=== PATIENT | female | born 1975 | race Caucasian/White ===

== ENCOUNTER 2019-06-09 01:41 | Outpatient (CLI) | payer MEDICAID, SELFPAY ==
--- NOTE | 2019-06-09 07:59 | DI.US_ITS ---
EXAM: US PELVIS TRANSVAGINAL CLINICAL HISTORY: ATTEMPTED IUD INSERTION X 2,EVALUATE FOR STRUCTURAL TECHNIQUE: Ultrasound performed using standard protocol. COMPARISON: ABDOMEN LIMITED/FOLLOW UP US from 01/22/2017 FINDINGS: Pelvic ultrasound was performed transabdominally and transvaginally. Please see the accompanying reshma a sheet for measurements of the pelvic structures. Uterus is unremarkable in appearance with a norm al appearing endometrial stripe at 10 millimeters. The ovaries have a normal follicular appearance. No free fluid identified in the cul-de-sac. Limited scanning of the kidneys is unremarkable. IMPRESSION: Negative pelvic ultrasound.
== END 2019-06-09 02:01 ==
PROVIDERS: PCP Nurse Practitioner Family; Visit Provider Nurse Practitioner Women's Health
DX: N94.89 Other specified conditions associated with female genital organs and menstrual cycle (principal)
CPT/HCPCS: 76830; 76856

== ENCOUNTER 2020-02-02 12:47 | Emergency (ER) | payer MEDICAID, SELFPAY ==
[2020-02-02 12:56] VITALS: BP 137/82; PULSE 117; RESP 19; TEMP 36.7; O2SAT 100
--- NOTE | 2020-02-02 13:10 | W.ED.GENAD ---
Discharge Plan Disposition Patient Disposition: HOME Condition: Improving Discharge Details Chief Complaint: Orthopedic Clinical Impression: Acute pain of right shoulder Primary Care Provider: Sandra Staton ED Provider: Carroll Tanner Home Meds and New Rx's Prescriptions: New hydrocodone-acetaminophen 5-325 mg tablet 1 tab PO Q8H PRN (Reason: pain) Qty: 7 RF: 0 Continued etonogestrel-ethinyl estradiol [NuvaRing] 0.12-0.015 mg/24 hr ring 1 vag ring VG Q4W Qty: 3 RF: 8 dextroamphetamine-amphetamine [Adderall XR] 30 mg capsule,extended release 24hr 30 mg PO DAILY MDD 30mg Qty: 30 RF: 0 dextroamphetamine-amphetamine [Adderall] 10 mg tablet 10 mg PO DAILY MDD 10mg Qty: 30 RF: 0 Discharge Instructions Instructions: Shoulder Pain (ED) Additional Instructions: Please follow-up in clinic tomorrow. As we discussed, you have deferred evaluation with x-ray today. Return at any time for reconsideration. Return sooner if you have increasing pain, develop a rash, fever, cough, difficulty breathing or chest pain. Please use ice and ibuprofen to reduce pain. Sling as needed for comfort. May use the prescribed hydrocodone as needed for severe/breakthrough pain. Medical Decision Making 45-year-old female presents with atraumatic right shoulder pain over days time. She says it feels like previous spasms that she had a primary was occurring along the shoulder blade posteriorly. There is areas of reproducible pain and muscle spasm present on exam. Patient is oxygenating normally and her lung sounds are clear. Referred for x-ray of the right shoulder, but patient said she decided that she wished to defer this. We discussed that the pain is reproducible without diagnostics evaluation will be somewhat limiting. I have agreed to offer her increase analgesia and a sling for comfort at home. She states that she does have a follow-up arranged tomorrow and will return if pain is not improving or for any other concerns. HPI General Mode of arrival: ambulatory. Date/Time Provider Initiated Documentation: 02/02/20 12:48. Limitations to Documentation: no limitations. Information obtained by: patient. History of Present Illness 45 year old F presents to the emergency department with the chief complaint of Right shoulder pain, denies fall or injury,, Quality is described as dull and constant, and is localized to the right and upper extremity. Patient reports radiation to back. Patient started experiencing this day(s) and it has been intermittent. No relieving factors improve symptom(s), No exacerbating factors reported . Patient notes denies fever/chills, syncope and weakness. Patient did receive the following treatments prior to arrival, NSAID Related Data Home Medications Medication Instructions Recorded Confirmed etonogestrel 0.12 mg-ethinyl 1 vag ring VG Q4W #3 each 09/04/19 02/02/20 estradiol 0.015 mg/24 hr vaginal ring Adderall 10 mg tablet 10 mg PO DAILY #30 tab NS MDD 10mg 01/19/20 02/02/20 Adderall XR 30 mg capsule,extended 30 mg PO DAILY #30 cap NS MDD 30mg 01/19/20 02/02/20 release hydrocodone-acetaminophen 1 tab PO Q8H PRN #7 tab 02/02/20 Previous Rx's Medication Instructions Recorded etonogestrel 0.12 mg-ethinyl 1 vag ring VG Q4W #3 each 09/04/19 estradiol 0.015 mg/24 hr vaginal ring Adderall 10 mg tablet 10 mg PO DAILY #30 tab NS MDD 10mg 01/19/20 Adderall XR 30 mg capsule,extended 30 mg PO DAILY #30 cap NS MDD 30mg 01/19/20 release hydrocodone-acetaminophen 1 tab PO Q8H PRN #7 tab 02/02/20 Allergies Allergy/AdvReac Type Severity Reaction Status Date / Time Ambien - weird dreams AdvReac Intermediate weird Uncoded 12/26/18 13:49 dreams General Stated Complaint: Orthopedic RANDEE: 4 Review of Systems Narrative: 6 systems reviewed and otherwise negative [facility] Medical History Alcohol abuse (Resolved) Attention deficit hyperactivity disorder (ADHD) (Chronic) Electronic cigarette use (Chronic) Substance abuse (Resolved) Cocaine, LSD Surgical History (Updated 12/21/19 @ 11:34 by Sandra Staton NP) S/P carpal tunnel release (Acute) Bilateral Family History Father Essential hypertension Alcohol abuse Hyperlipidemia Mother Alcohol abuse Substance abuse Daughter No problems noted. 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 Pleasant, well groomed, interactive. HEAD: Normocephalic, atraumatic ENT: Mucous membranes moist, External ear exam unremarkable EYES: PERRL, EOMI NECK: Full ROM, no BOZENA, no menigismus CHEST/RESP: Nontender, clear to auscultation bilateral, no wheeze/rhonchi/rales CARDIOVASCULAR: RRR, no murmur, rub sergio. 2+ Rad pulse bilateral EXT: Full ROM, no edema, no rash. Tender along the right medial scapula border with muscle spasm and knots present. Motor is graded 5 out of 5 and sensation is intact throughout Neuro: Grossly normal neurologic exam, conversant, interactive. Psych: Speech fluent, thoughts congruent, affect normal Course Vital Signs Vital signs: Vital Signs Temperature 36.7 C 02/02/20 12:56 Pulse 117 H 02/02/20 12:56 Respiratory Rate 19 02/02/20 12:56 Blood Pressure 137/82 02/02/20 12:56 Pulse Oximetry 100 02/02/20 12:56 Temperature 36.7 C 02/02/20 12:56 Temperature Source Temporal Artery Scan 02/02/20 12:56 Pulse 117 H 02/02/20 12:56 Respiratory Rate 19 02/02/20 12:56 Respiratory Effort 02/02/20 13:00 Blood Pressure 137/82 02/02/20 12:56 Blood Pressure Position Supine 02/02/20 12:56 Pulse Oximetry 100 02/02/20 12:56 Oxygen Delivery Method Room Air 02/02/20 12:56 Oxygen Flow Rate 0 02/02/20 12:56 Pain Level 9 02/02/20 12:56
== END 2020-02-02 13:39 | disposition home or self-care (01) ==
PROVIDERS: Emergency Provider Emergency Medicine; PCP Nurse Practitioner Family
DX: M25.511 Pain in right shoulder (principal)
CPT/HCPCS: 99283; L3650

== ENCOUNTER 2020-03-28 01:11 | Outpatient (CLI) | payer MEDICAID, SELFPAY ==
--- NOTE | 2020-03-28 07:45 | DI.RAD_ITS ---
EXAM: XR LUMBAR SPINE COMPLETE CLINICAL HISTORY: Low back pain x 1.3yrs,M54.5 TECHNIQUE: COMPARISON: No exams were available for comparison FINDINGS: Five views were obtained. There are mild degenerative changes of the SI joints. The intervertebral disc spaces appear fairly well maintained. There is an apparent bilateral L5 spondylolysis with spon dylolisthesis of L5 on S1 estimated at 15 percent of the vertebral width. No other significant bony abnormality seen apart from minimal hypertrophic facet changes of the lower lumbar region. IMPRESSION: Bilateral L5 spondylolysis with mild anterior spondylolisthesis of L5 on S1.
== END 2020-03-28 01:31 ==
PROVIDERS: PCP Nurse Practitioner Family; Visit Provider Nurse Practitioner Family
DX: M54.5 Low back pain; M43.06 Spondylolysis, lumbar region; M43.17 Spondylolisthesis, lumbosacral region
CPT/HCPCS: 72110

== ENCOUNTER 2020-04-06 01:39 | Outpatient (CLI) | payer MEDICAID, SELFPAY ==
--- NOTE | 2020-04-06 06:46 | DI.MRI_ITS ---
EXAM: MR LUMBAR SPINE WO CLINICAL HISTORY: Back pain x 1yr, assess for disc herniation,RADICULOPATHY,M54.16. TECHNIQUE: Multiplanar multisequence MRI was performed. COMPARISON: CR XR LUMBAR SPINE COMPLETE from 03/28/2020 FINDINGS: MR examination lumbosacral spine was performed according to the usual protocol. No significant bony signal abnormality seen. There is a bilateral L5 spondylolysis with associated spondylolisthesis est imated at 10 percent of the vertebral width of L5 on S1. The conus medullaris appears intact. No disc herniation identified at the levels examined. There is no bony central canal spinal stenosis. There is mild bilateral neural foraminal narrowing at L5-S1 secondary to the spondylolisthesis at this level. IMPRESSION: Bilateral L5 spondylolysis with associated anterior spondylolisthesis of L5 on S1 estimated at 10 per cent of vertebral width. There is mild associated bilateral neural foraminal narrowing at this level secondary to the spondylo listhesis. DATA REPOSITORY:
== END 2020-04-06 01:59 ==
PROVIDERS: PCP Nurse Practitioner Family; Visit Provider Nurse Practitioner Family
DX: M43.06 Spondylolysis, lumbar region (principal); M43.17 Spondylolisthesis, lumbosacral region; M54.16 Radiculopathy, lumbar region
CPT/HCPCS: 72148

== ENCOUNTER 2020-10-12 02:30 | Outpatient (CLI) | payer MEDICAID, SELFPAY ==
[2020-10-13 13:06] LABS: COVID-19 RT-PCR UVMMC Result Negative (Negative)
== END 2020-10-12 02:31 | disposition home or self-care (01) ==
LOC: LBO 02:31
PROVIDERS: PCP Nurse Practitioner Family; Visit Provider Nurse Practitioner Family
DX: Z20.822 Contact with and (suspected) exposure to COVID-19 (principal)
CPT/HCPCS: U0003

== ENCOUNTER → 2021-12-27 00:41 | Outpatient (CLI) | payer MEDICAID, SELFPAY | PROVIDERS: PCP Nurse Practitioner Family; Visit Provider Nurse Practitioner Family ==

== ENCOUNTER 2022-01-13 19:37 | Emergency (ER) | payer MEDICAID, SELFPAY ==
[2022-01-13 19:42] VITALS: BP 143/94; PULSE 96; RESP 18; TEMP 36.3; O2SAT 99
--- NOTE | 2022-01-13 20:22 | W.ED.GENAD ---
Discharge Plan Disposition Patient Disposition: HOME Condition: Good Discharge Details Clinical Impression: External hordeolum, Rash Primary Care Provider: Sandra Staton ED Provider: Eduardo Ludwig Home Meds and New Rx's Prescriptions: New cephalexin 500 mg capsule 500 mg PO QID 7 Days Qty: 28 0RF hydroxyzine HCl 25 mg tablet 25 mg PO TID Qty: 30 0RF Continued metronidazole 500 mg tablet 500 mg PO BID Qty: 14 0RF Rx Instructions: Take 1 tablet twice a day for 7 days dextroamphetamine-amphetamine [Adderall] 10 mg tablet 10 mg PO DAILY MDD 10mg Qty: 28 0RF Rx Instructions: Take 1 tablet in the afternoon, latest by 3p dextroamphetamine-amphetamine [Adderall XR] 30 mg capsule,extended release 24hr 30 mg PO DAILY MDD 30mg Qty: 28 0RF Rx Instructions: Take 1 capsule daily in AM ibuprofen 800 mg tablet 800 mg PO TID PRN (Reason: pain) Qty: 120 0RF lidocaine 4 % adhesive patch,medicated 1 patch TP DAILY PRN (Reason: pain) Qty: 30 4RF Rx Instructions: may leave on for up to 12 hrs Discharge Instructions Instructions: Cephalexin (By mouth), Stye (ED) Additional Instructions: Please take the antibiotic as directed. They have been sent to your pharmacy on file. Please take the itching medicine hydroxyzine as well to help with the itching from the bug bites. Please gently massage your eye 2-3 times per day with warm soapy water, I would recommend [employer] tear free baby shampoo. If the swelling worsens, or spreads or you develop pain in your eye with any movement, please return immediately for reassessment. You may require drainage with a needle or blade if this occurs. 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 If you notice any worsening of your symptoms, or any new symptoms such as vomiting, diarrhea, fever, chills, shortness of breath, chest pain, numbness, weakness, or fainting , please return immediately to the emergency department for reevaluation. Please follow up with your primary care provider as soon as possible for reassessment and reevaluation. As always, it was a pleasure participating in your medical care today. Referrals: [facility] [Outside] Sandra Staton NP [Primary Care Provider] - Medical Decision Making This is a pleasant 46-year-old female who presents today for evaluation of a stye. Patient states that for the last few days she has had a small stye in her right lower lid. She has tried to squeeze it but was not able to get anything out. She was concerned about this and came to the ER for further assessment. Additionally the patient states that she was exposed to fleas about a week or so ago, and has had some persistent itching at the sites where she was bitten. She is requesting something for this. She denies any vision changes, pain with movement of the eye, pain with palpation, fever chills or other complaints. No other modifying factors. She denies any trauma. She denies any drainage from the eye. Physical exam demonstrates evidence of a mild hordeolum externum. No evidence of pre or post septal cellulitis of significance. Area does not appear to be consistent with a plugged lacrimal gland however it is in close proximity to the lacrimal gland which makes the differentiation slightly challenging. At this time with no clear indication for I&D at this time, we will focus on oral antibiotics, continued gentle washing of the area with warm soapy water, and close follow-up with optometry/Dr. Ann. Additionally the patient does have a few small lesions on her arms that are consistent with a flea bite. Will give Atarax for the itching. No indication for permethrin ointment as there is no evidence of intertriginous involvement, or symptoms of scabies. No superficial cellulitis otherwise. Discussed red flags which to return. I have extensively reviewed the treatment plan and discharge instructions with the patient. I have addressed all patient concerns at this time. The patient was made aware of what symptoms to monitor for that would warrant a return to the emergency department. Discussed the plan with the patient, they demonstrate verbal understanding and agreement with our assessment and plan at this time. The documentation in this chart was dictated using [employer] dictation software. Please excuse any dictation errors. HPI General Date/Time Provider Initiated Documentation: 01/13/22 19:38. HPI Narrative: This is a pleasant 46-year-old female who presents today for evaluation of a stye. Patient states that for the last few days she has had a small stye in her right lower lid. She has tried to squeeze it but was not able to get anything out. She was concerned about this and came to the ER for further assessment. Additionally the patient states that she was exposed to fleas about a week or so ago, and has had some persistent itching at the sites where she was bitten. She is requesting something for this. She denies any vision changes, pain with movement of the eye, pain with palpation, fever chills or other complaints. No other modifying factors. She denies any trauma. She denies any drainage from the eye. Related Data Home Medications Medication Instructions Recorded Confirmed ibuprofen 800 mg tablet 800 mg PO TID PRN pain #120 tabs 10/06/21 11/30/21 lidocaine 4 % topical patch 1 patch topical DAILY PRN pain #30 10/06/21 11/30/21 ea Adderall 10 mg tablet 10 mg PO DAILY #28 tabs 11/30/21 11/30/21 (dextroamphetamine-amphetamine) Adderall XR 30 mg capsule,extended 30 mg PO DAILY #28 caps 11/30/21 11/30/21 release (dextroamphetamine-amphetamine) metronidazole 500 mg tablet 500 mg PO BID #14 tabs 11/30/21 11/30/21 cephalexin 500 mg capsule 500 mg PO QID 7 days #28 caps 01/13/22 hydroxyzine HCl 25 mg tablet 25 mg PO TID #30 tabs 01/13/22 Previous Rx's Medication Instructions Recorded ibuprofen 800 mg tablet 800 mg PO TID PRN pain #120 tabs 10/06/21 lidocaine 4 % topical patch 1 patch topical DAILY PRN pain #30 10/06/21 ea Adderall 10 mg tablet 10 mg PO DAILY #28 tabs 11/30/21 (dextroamphetamine-amphetamine) Adderall XR 30 mg capsule,extended 30 mg PO DAILY #28 caps 11/30/21 release (dextroamphetamine-amphetamine) metronidazole 500 mg tablet 500 mg PO BID #14 tabs 11/30/21 cephalexin 500 mg capsule 500 mg PO QID 7 days #28 caps 01/13/22 hydroxyzine HCl 25 mg tablet 25 mg PO TID #30 tabs 01/13/22 Allergies Allergy/AdvReac Type Severity Reaction Status Date / Time Ambien - weird dreams AdvReac Intermediate weird Uncoded 01/13/22 19:47 dreams General Stated Complaint: EyeProblem RANDEE: 4 Review of Systems All systems reviewed & are unremarkable except as noted in HPI and below PFSH All Active Problems External hordeolum (Acute) Rash (Acute) Attention deficit hyperactivity disorder (ADHD) (Chronic) IUD surveillance (Chronic) Mirena IUD inserted 04/14/20 Trigger finger of right thumb (Chronic) Electronic cigarette use (Chronic) Medical History Alcohol abuse Lumbar back pain with radiculopathy affecting lower extremity Lumbar spondylolysis with spondylolisthesis on MRI 03/2020. No disc herniation Surgical History S/P carpal tunnel release Bilateral Family History Father Essential hypertension Alcohol abuse Hyperlipidemia Mother Alcohol abuse Substance abuse Daughter No problems noted. 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 Patient does demonstrate evidence of what appears to be a hordeolum externum on the left eye on the lower lid. However it is in close proximity to the inferior lacrimal duct. Gentle palpation of the area does not exude any purulence or discharge. There is no other signs on the patient's eye or other lacrimal areas or significant swelling to suggest blockage of the lacrimal duct itself. No tenderness on palpation of the eye otherwise. Small area of swelling/stye is minimally firm. No major fluctuance that I can appreciate. No head that can easily be deroofed. No conjunctival injection. 3.ENT: Atraumatic external nose and ears. Moist MM. Neck: Symmetric, trachea midline, No thyromegaly. 4.CVS: +S1/S2, No murmurs or gallops. Peripheral pulses 2+ and equal in all extremities. Brisk capillary refill in all extremities. 5.RESP: Unlabored respiratory effort. Clear to auscultation bilaterally. No wheezes rales or rhonchi 6.GI: Soft, Nontender/Nondistended, No hepatosplenomegaly. No guarding or rebound. 7.MSK: Normocephalic/Atraumatic, Extremities w/o deformity or ttp No cyanosis or clubbing, Normal movement of all extremities 8.Skin: Warm, Dry. No rashes or lesions. 9.Neuro: vice president of talent acquisition II-XII grossly intact. Sensation grossly intact, no focal neurologic deficits. 10.Psych: (AAO) x3. Appropriate mood and affect Course Vital Signs Vital signs: Vital Signs Temperature 36.3 C L 01/13/22 19:42 Pulse 96 H 01/13/22 19:42 Respiratory Rate 18 01/13/22 19:42 Blood Pressure 143/94 H 01/13/22 19:42 Pulse Oximetry 99 01/13/22 19:42 Temperature 36.3 C L 01/13/22 19:42 Temperature Source Skin 01/13/22 19:42 Pulse 96 H 01/13/22 19:42 Respiratory Rate 18 01/13/22 19:42 Respiratory Effort 01/13/22 19:45 Blood Pressure 143/94 H 01/13/22 19:42 Blood Pressure Position Sitting 01/13/22 19:42 Pulse Oximetry 99 01/13/22 19:42 Oxygen Delivery Method Room Air 01/13/22 19:42 Oxygen Flow Rate 0 01/13/22 19:42 Pain Level 3 01/13/22 19:42
[2022-01-13] MEDS: Cephalexin 500 MG CAP, 4 CAPS/BTL PO (20:36)
[2022-01-13] MEDS: hydrOXYzine HCL 25 MG TAB PO (20:36)
--- NOTE | 2022-01-13 20:55 | NUR.NOTE ---
Referral faxed to [facility] per Dr. Ludwig. The patient needs re-assessment for a stye and she needs glasses. Put the referral in the nursing care attendant's box for follow-up.
== END 2022-01-13 20:37 | disposition home or self-care (01) ==
PROVIDERS: Emergency Provider Student in an Organized Health Care Education/Training Program; PCP Nurse Practitioner Family
DX: H00.015 Hordeolum externum left lower eyelid (principal)
CPT/HCPCS: 99283

== ENCOUNTER 2022-08-17 13:39 | Emergency (ER) | payer MEDICAID, SELFPAY ==
[2022-08-17 14:04] VITALS: BP 148/87; PULSE 106; RESP 15; TEMP 36.8; O2SAT 99
== END 2022-08-17 14:11 | disposition left against medical advice (07) ==
LOC: ER 13:48
PROVIDERS: PCP Nurse Practitioner Family
DX: Z53.21 Procedure and treatment not carried out due to patient leaving prior to being seen by health care provider (principal)
CPT/HCPCS: 87637

== ENCOUNTER 2024-05-23 13:52 | Emergency (ER) | payer MEDICAID, SELFPAY ==
[2024-05-23 13:57] VITALS: BP 134/75; PULSE 110; RESP 18; TEMP 36.5; O2SAT 98
--- NOTE | 2024-05-23 14:00 | DI.RAD_ITS ---
Exam(s) XR HAND LT COMPLETE EXAM: XR HAND LT COMPLETE CLINICAL HISTORY: L 4th finger pain x 1 week. TECHNIQUE: 2D digital imaging was performed of the left hand. Three views were obtained. AP, later al and oblique views were obtained. COMPARISON: No exams were available for comparison FINDINGS: BONES: No acute fracture is present. No bony destructive lesion is seen. JOINTS: No dislocation present. There are mild degenerative changes seen in the hand particularly at the interphalangeal joints, especially the DIP joints of the 2nd and 3rd fingers. SOFT TISSUE: Normal. IMPRESSION: Mild degenerative changes seen in the fingers. DATA REPOSITORY: RADIATION DOSE DELIVERED:
--- NOTE | 2024-05-23 14:17 | W.ED.GENAD ---
Discharge Plan Disposition Patient Disposition: Home Discharge Details Clinical Impression: Finger sprain Primary Care Provider: Sandra Staton ED Provider: Juli Perdue Home Meds and New Rx's Prescriptions: No Action triamcinolone acetonide 0.1 % cream 1 applic topical BID Qty: 15 0RF lidocaine 4 % adhesive patch,medicated 1 patch TP DAILY PRN (Reason: pain) Qty: 30 4RF Rx Instructions: may leave on for up to 12 hrs ibuprofen 800 mg tablet 800 mg PO TID PRN (Reason: pain) Qty: 120 0RF dextroamphetamine-amphetamine [Adderall XR] 30 mg capsule,extended release 24hr 30 mg PO DAILY MDD 30mg Qty: 28 0RF Rx Instructions: Take 1 capsule daily in AM dextroamphetamine-amphetamine 30 mg tablet 30 mg PO DAILY MDD 30mg Qty: 28 0RF Discharge Instructions Instructions: Finger Sprain Exercises Additional Instructions: Please follow-up with your primary care provider in 1 week if you are not feeling significantly better; a referral to OT may be helpful I encourage you to use the finger exercises and the pamphlet provided. Will use rufina taping to help with comfort. Apply ice frequently, for 15 to 20 minutes at a time every hour if possible. You may continue using ibuprofen. Referrals: Sandra Staton, KARI [Primary Care Provider] - [facility] General Date/Time Provider Initiated Documentation: 05/23/24 13:56. HPI Narrative: Vanda is a 49 year old female who presents to the emergency dept for evaluation of L ring finger pain x 1 week. She reports her finger got bent back while carrying some heavy bags, has been increasing in pain since incident. Pain is elicited with extension and flexion. Finger is swollen. No distal numbness/tingling, color change, or weakness. Has been taking ibuprofen and using ice for comfort. She is right handed. Denies signficant PMH, does admit to arthritis in her hands. Physical exam remarkable for mild swelling to proximal phalynx. Full extension and flexion, though uncomfortable. Brisk cap refill. No point tenderness. Mild tenderness with palpation of distal metacarpal. D/dx includes but is not limited to: fracture, sprain, soft tissue injury. No red flags concerning for tendon rupture or neurovascular compromise. I independently interpreted the following test:L hand xray. No obvious fracture of dislocation noted. While in the ED, Vanda received ibuprofen and ice for discomfort. Probable sprain. Reviewed discharge instructions, including use of rufina tape, NSAIDS, rest, and ice. Related Data Home Medications ?Medication ?Instructions ?Recorded ?Confirmed triamcinolone acetonide 0.1 % 1 applic topical BID #15 grams 02/25/23 05/23/24 topical cream lidocaine 4 % topical patch 1 patch topical DAILY PRN pain #30 08/28/23 05/23/24 ea ibuprofen 800 mg tablet 800 mg PO TID PRN pain #120 tabs 09/18/23 05/23/24 Adderall XR 30 mg capsule,extended 30 mg PO DAILY #28 caps 03/09/24 05/23/24 release (dextroamphetamine-amphetamine) dextroamphetamine-amphetamine 30 30 mg PO DAILY #28 tabs 03/09/24 05/23/24 mg tablet Previous Rx's ?Medication ?Instructions ?Recorded triamcinolone acetonide 0.1 % 1 applic topical BID #15 grams 02/25/23 topical cream lidocaine 4 % topical patch 1 patch topical DAILY PRN pain #30 08/28/23 ea ibuprofen 800 mg tablet 800 mg PO TID PRN pain #120 tabs 09/18/23 Adderall XR 30 mg capsule,extended 30 mg PO DAILY #28 caps 03/09/24 release (dextroamphetamine-amphetamine) dextroamphetamine-amphetamine 30 30 mg PO DAILY #28 tabs 03/09/24 mg tablet Allergies Allergy/AdvReac Type Severity Reaction Status Date / Time Ambien - weird dreams AdvReac Intermediate weird Uncoded 05/23/24 13:59 dreams General Stated Complaint: Orthopedic RANDEE: 4 Review of Systems Narrative: see HPI Exam Const General: cooperative, healthy appearing, comfortable, no acute distress, well developed and well groomed Nutritional Appearance: average body habitus Orientation: alert and oriented x3 Resp Effort & Inspection: normal respiratory effort and able to speak in complete sentences Extrem Right upper extremity: normal to inspection and full ROM Left upper extremity: full ROM, normal capillary refill, wrist Details: normal to inspection and hand Details: normal capillary refill, neuromotor exam normal, neurosensory exam normal, tendon exam normal, tenderness Location: of the 4th digit Location: at the proximal phalanx, normal ROM of fingers and swelling Location: of the 4th digit Location: at the proximal phalanx; no unusual warmth, no abrasions, no lacerations, no ecchymosis, no crepitus, no foreign bodies and no puncture wound Course Vital Signs Vital signs: Vital Signs Temperature 36.5 C 05/23/24 13:57 Pulse 110 H 05/23/24 13:57 Respiratory Rate 18 05/23/24 13:57 Blood Pressure 134/75 05/23/24 13:57 Pulse Oximetry 98 05/23/24 13:57 Temperature 36.5 C 05/23/24 13:57 Temperature Source Oral 05/23/24 13:57 Pulse 110 H 05/23/24 13:57 Respiratory Rate 18 05/23/24 13:57 Respiratory Effort Normal, Non-Labored 05/23/24 14:00 Blood Pressure 134/75 05/23/24 13:57 Blood Pressure Position Sitting 05/23/24 13:57 Pulse Oximetry 98 05/23/24 13:57 Oxygen Delivery Method Room Air 05/23/24 13:57 Oxygen Flow Rate 0 05/23/24 13:57 Medical Decision Making Quality:SDOH Health Related Social Needs: No Data to Display PFSH All Active Problems Finger sprain (Acute) Social anxiety disorder (Acute) Attention deficit hyperactivity disorder (ADHD) (Chronic) IUD surveillance (Chronic) Mirena IUD inserted 04/14/20 Trigger finger of right thumb (Chronic) Electronic cigarette use (Chronic) Medical History Alcohol abuse COVID-19 virus infection Lumbar back pain with radiculopathy affecting lower extremity Lumbar spondylolysis with spondylolisthesis on MRI 03/2020. No disc herniation Surgical History S/P carpal tunnel release Bilateral Family History Father Essential hypertension Alcohol abuse Hyperlipidemia Mother Alcohol abuse Substance abuse Daughter No problems noted. 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
[2024-05-23] MEDS: Ibuprofen 800 MG TAB PO (14:34)
[2024-05-23 15:02] VITALS: BP 130/82; PULSE 86; RESP 18; O2SAT 98
--- NOTE | 2024-05-23 15:40 | DI.VRAD_ITS ---
PROCEDURE INFORMATION: Exam: XR Left Hand Exam date and time: 05/23/2024 2:37 PM Age: 49 years old Clinical indication: Pain; Finger(s) and hand; Left TECHNIQUE: Imaging protocol: Radiologic exam of the left hand. Views: 3 or more views. COMPARISON: No relevant prior studies available. FINDINGS: Bones/joints: No acute fracture or dislocation identified. The distal radius and ulna are intact. The carpal bones show normal alignment. There are no subluxations of the metacarpophalangeal joints. There is mild degenerative change of the interphalangeal joints consisting of mild joint space narrowing and minimal spur formation. Changes are greatest in the distal interphalangeal joint of the 3rd finger. There is no erosive change or bony destruction. Soft tissues: No soft tissue gas or foreign bodies. IMPRESSION: 1. No acute bony change identified. 2. Mild osteoarthritis of the interphalangeal joints without erosive change or bony destruction. Dictated and Authenticated by: Marc Mendez MD. Ordering:TOM Bustos MD
== END 2024-05-23 15:04 | disposition home or self-care (01) ==
PROVIDERS: Emergency Provider Nurse Practitioner Family; PCP Nurse Practitioner Family
DX: S63.615A Unspecified sprain of left ring finger, initial encounter (principal); X50.1XXA Overexertion from prolonged static or awkward postures, initial encounter
CPT/HCPCS: 99283; 73130

== ENCOUNTER 2025-03-02 13:57 | Emergency (ER) | payer MEDICAID, SELFPAY ==
[2025-03-02] MEDS: EPINEPHrine 0.3 MG KIT (14:04)
[2025-03-02 14:18] VITALS: BP 57/40; RESP 120; O2SAT 99
[2025-03-02] MEDS: methylPREDNISolone SUCC 125 MG VIAL IVP (14:21)
[2025-03-02] MEDS: Normal Saline 1,000 ML 1000 ML IV (14:21)
[2025-03-02] MEDS: Famotidine 20 MG/2 ML VIAL IVP (14:21)
--- NOTE | 2025-03-02 14:21 | ED.GENADUL_ITS ---
Discharge Plan Disposition Patient Disposition: Home Condition: Stable Discharge Details Clinical Impression: Anaphylactic reaction Primary Care Provider: Sandra Staton ED Provider: Allison Fuentes Home Meds and New Rx's Prescriptions: New epinephrine [EpiPen 2-Kian] 0.3 mg/0.3 mL auto-injector 0.3 mg IM Q5-15M PRNQty: 2 1RF Rx Instructions: do not exceed 3 doses per episode prednisone 20 mg tablet 60 mg PO DAILY 5 Days Qty: 15 0RF No Action triamcinolone acetonide 0.1 % cream 1 applic topical BID Qty: 15 0RF lidocaine 4 % adhesive patch,medicated 1 patch TP DAILY PRN (Reason: pain) Qty: 30 4RF Rx Instructions: may leave on for up to 12 hrs ibuprofen 800 mg tablet 800 mg PO TID PRN (Reason: pain) Qty: 120 0RF dextroamphetamine-amphetamine [Adderall XR] 30 mg capsule,extended release 24hr 30 mg PO DAILY MDD 30mg Qty: 28 0RF Rx Instructions: Take 1 capsule daily in AM dextroamphetamine-amphetamine 30 mg tablet 30 mg PO DAILY MDD 30mg Qty: 28 0RF Discharge Instructions Instructions: How to use an epinephrine autoinjector, Anaphylaxis - Discharge instructions Additional Instructions: You developed anaphylactic reaction to the insect sting from earlier today. You needed epinephrine and IV steroids in the emergency department with improvement of symptoms. I am prescribing an epinephrine pen for you to use should this happen again. Please use this as prescribed. Please follow-up with your [facility] doctor as well and in the meantime if you develop any new or worsening symptoms please return to the emergency department immediately for reevaluation. Discharge Data Discharge Date/Time-TO BE ENTERED AT DEPARTURE: 03/02/25 17:02 HPI General Date/Time Provider Initiated Documentation: 03/02/25 14:02 . HPI Narrative: The patient is a 50-year-old female with history of anxiety who comes to the emergency department for concern for an allergic reaction. The patient reports that she was working on the garden and heard an insect buzzing and felt a stab on her scalp. Reports soon after she started to feel short of breath, itchy and swollen. Reports that she has been stung on the abdomen years prior and developed a large rash on her abdomen but never had a reaction this intense. Reports she was at her baseline health prior. Reports that she does not have an EpiPen at home and had not taken any medication prior to emergency room arrival. Denies any nausea or vomiting with this. Reports that she did have a hard time swallowing. Reports that there was nothing new or different from her routine prior to symptom onset. Related Data Home Medications ?Medication ?Instructions ?Recorded ?Confirmed triamcinolone acetonide 0.1 % 1 applic topical BID #15 grams 02/25/23 05/23/24 topical cream ibuprofen 800 mg tablet 800 mg PO TID PRN pain #120 tabs 05/27/24 lidocaine 4 % topical patch 1 patch topical DAILY PRN pain #30 05/27/24 ea Adderall XR 30 mg capsule,extended 30 mg PO DAILY #28 caps 02/02/25 release (dextroamphetamine-amphetamine) dextroamphetamine-amphetamine 30 30 mg PO DAILY #28 ta bs 02/02/25 mg tablet epinephrine 0.3 mg/0.3 mL 0.3 mg (0.3 mL) IM Q5-15M AL N #2 ea 03/02/25 injection, auto-injector (EpiPen 2-Kian) prednisone 20 mg tablet 60 mg (3 x 20 mg) PO DAILY 5 days 03/02/25 #15 tabs Previous Rx's ?Medication ?Instructions ?Recorded triamcinolone acetonide 0.1 % 1 applic topical BID #15 grams 02/25/23 topical cream ibuprofen 800 mg tablet 800 mg PO TID PRN pain #120 tabs 05/27/24 lidocaine 4 % topical patch 1 patch topical DAILY PRN pain #30 05/27/24 ea Adderall XR 30 mg capsule,extended 30 mg PO DAILY #28 caps 02/02/25 release (dextroamphetamine-amphetamine) dextroamphetamine-amphetamine 30 30 mg PO DAILY #28 ta bs 02/02/25 mg tablet epinephrine 0.3 mg/0.3 mL 0.3 mg (0.3 mL) IM Q5-15M AL N #2 ea 03/02/25 injection, auto-injector (EpiPen 2-Kian) prednisone 20 mg tablet 60 mg (3 x 20 mg) PO DAILY 5 days 03/02/25 #15 tabs Allergies Allergy/AdvReac Type Severity Reaction Status Date / Time Ambien - weird dreams AdvReac Intermediate weird Uncoded 05/23/24 13:59 dreams General Stated Complaint: Allergic RANDEE: 2 Review of Systems Narrative: Review of systems are negative except as mentioned. Exam Narrative Exam Narrative: General appearance: The patient is alert, in distress. HEENT: Pupils are round, equal and reactive. Patient has eyelid swelling bilaterally. Oral mucosal membranes are moist. No tongue or lip swelling noted. Neck: Supple, non-tender. Respiratory: There are no retractions. Patient has wheezes in upper lung field. Cardiovascular: Patient is tachycardic but regular. Radial pulses are intact and equal. Gastrointestinal: The abdomen is soft and nondistended with normal bowel sounds. Nontender to palpation throughout. Neurological: The patient is alert, awake and oriented x 3. Skin: Patient has maculopapular lesions of her extremities and trunk. No retained insect part is noted on her scalp. Extremities: No lower extremity edema or calf tenderness is noted to palpation bilaterally. Course Vital Signs Vital signs: Vital Signs Respiratory Rate 120 H 03/02/25 14:18 Blood Pressure 57/40 L 03/02/25 14:18 Pulse Oximetry 99 03/02/25 14:18 Respiratory Rate 120 H 03/02/25 14:18 Blood Pressure 57/40 L 03/02/25 14:18 Blood Pressure Position Sitting 03/02/25 14:18 Pulse Oximetry 99 03/02/25 14:18 Oxygen Delivery Method Room Air 03/02/25 14:18 Oxygen Flow Rate 0 03/02/25 14:18 Medical Decision Making I came to evaluate the patient immediately upon arrival. Physical exam is concerning for anaphylaxis. I have ordered epinephrine IM and IV Solu-Medrol, Pepcid and Benadryl. Patient is found to be hypotensive. I have ordered a liter of normal saline also. I do have a low threshold for repeat epinephrine dose. She will need to be closely observed. On reevaluation her blood pressure has improved. The patient reports that she is feeling better also but drowsy after IV medication administration. I will ho ld off on repeat epinephrine just now but we will continue to closely observe. I have reevaluated the patient again. Her blood pressure is back to normal. The swelling in her eyelids have completely resolved. She will be reevaluated again. On reevaluation she feels much improved. At this point it has been almost 3 hours since epinephrine administration and she remains hemodynamically stable without need for further epinephrine dose. Patient is to be discharged shortly. I have sent a prescription for EpiPen to her preferred pharmacy and asked her to use this should the similar event happen in the future and then call 911. She is asked to follow-up with her primary care doctor as well and urged to return to the emergency department with any worsening symptoms or any other concerns. Just prior to discharge the patient has developed urticarial lesions to the extremities and trunk. She continued to not have any facial involvement and continued to overall feel improved and not as itchy. She denies any chest pain, shortness of breath, difficulty swallowing. She reports she is ready to go home therefore she is to be discharged. I did add a prescription for prednisone to her preferred pharmacy and asked her to take this as prescribed and asked her to have low threshold to return to the emergency department should her symptoms start to get worse once more. Patient voiced understanding of this plan and agree. Critical Care Time Critical Care Time Critical Care Time: Yes Total Critical Care Time: 25 Attestation: Total critical care time: 25 minutes Critical concerns: anaphylaxis Critical interventions: I came to evaluate the patient immediately upon arrival. Patient had facial swelling, shortness of breath. She was found to be hypotensive as well. She is given epinephrine and IV steroids immediately. She was started on IV fluids also. She was closely observed and reevaluated multiple times. Total critical care time included the assessment and discussion described in the ED history, physical, and medical decision making. The critical care time provided excludes separately billable procedures. PFSH All Active Problems Anaphylactic reaction (Acute) Social anxiety disorder (Acute) Attention deficit hyperactivity disorder (ADHD) (Chronic) IUD surveillance (Chronic) Mirena IUD inserted 04/14/20 Trigger finger of right thumb (Chronic) Electronic cigarette use (Chronic) Medical History Alcohol abuse COVID-19 virus infection Lumbar back pain with radiculopathy affecting lower extremity Lumbar spondylolysis with spondylolisthesis on MRI 03/2020. No disc herniation Surgical History S/P carpal tunnel release Bilateral Family History Father Essential hypertension Alcohol abuse Hyperlipidemia Mother Alcohol abuse Substance abuse Daughter No problems noted. 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
[2025-03-02] MEDS: diphenhydrAMINE 50 MG/ML VIAL 25 MG IVP (14:22)
== END 2025-03-02 17:02 | disposition home or self-care (01) ==
PROVIDERS: Emergency Provider Emergency Medicine; PCP Nurse Practitioner Family
DX: T63.481A Toxic effect of venom of other arthropod, accidental (unintentional), initial encounter (principal); T78.2XXA Anaphylactic shock, unspecified, initial encounter; F41.9 Anxiety disorder, unspecified; Y93.H2 Activity, gardening and landscaping; F17.290 Nicotine dependence, other tobacco product, uncomplicated
CPT/HCPCS: 96361; 96374; 96375; 99284; 99291; J0165; J1200; J2919

== ENCOUNTER 2025-05-05 19:32 | Emergency (ER) | payer MEDICAID, SELFPAY ==
[2025-05-05 19:21] VITALS: BP 151/70; PULSE 112; RESP 20; TEMP 36.9; O2SAT 99
--- NOTE | 2025-05-05 19:54 | ED.GENADUL_ITS ---
Discharge Plan Disposition Patient Disposition: Home Discharge Details Clinical Impression: Reaction to hymenoptera sting Primary Care Provider: Sandra Staton ED Provider: Miller Keating Home Meds and New Rx's Prescriptions: New epinephrine [EpiPen 2-Kian] 0.3 mg/0.3 mL auto-injector 0.3 mg IM Q5-15M PRNQty: 2 0RF Rx Instructions: do not exceed 3 doses per episode Continued lidocaine 4 % adhesive patch,medicated 1 patch TP DAILY PRN (Reason: pain) Qty: 30 4RF Rx Instructions: may leave on for up to 12 hrs ibuprofen 800 mg tablet 800 mg PO TID PRN (Reason: pain) Qty: 120 0RF dextroamphetamine-amphetamine [Adderall XR] 30 mg capsule,extended release 24hr 30 mg PO DAILY MDD 30mg Qty: 28 0RF Rx Instructions: Take 1 capsule daily in AM epinephrine [EpiPen 2-Kian] 0.3 mg/0.3 mL auto-injector 0.3 mg IM Q5-15M PRNQty: 2 1RF Rx Instructions: do not exceed 3 doses per episode Discharge Instructions Additional Instructions: You are seen in the emergency department for your bee sting. You received steroids. Your EpiPen has been refilled. If you develop shortness of breath chest pain or have any other concerns please return to the emergency department. Otherwise please follow-up with primary care provider as needed. Discharge Data Discharge Date/Time-TO BE ENTERED AT DEPARTURE: 05/05/25 20:38 HPI General Date/Time Provider Initiated Documentation: 05/05/25 19:54 . HPI Narrative: MDM This is an overall quite well-appearing tachycardic but normotensive and not hypoxic 50-year-old female with history of anaphylaxis now status post EpiPen for which patient will be observed in the emergency department following dexamethasone. Patient was concerned about her bee sting that had no obvious signs of anaphylaxis prior to self administration of EpiPen. EMS did not provide EpiPen. She has a very subtle erythematous area to the dorsal aspect of her left foot where she was stung by bee. No pain or proportion to suggest nec rotizing soft tissue infection. No preceding syncope to suggest benefit from ACS. Will observe the patient in the ED. Will refill her prescription for EpiPen. No nausea no vomiting to suggest anaphylaxis. 8:28 PM I reassessed the patient. She felt improved. She requested discharge. We discussed that she should return for symptoms worsened or if she had any other concerns. She was discharged with empiric trial of Bactrim and outpatient management. Tachycardia resolved at the time of discharge. HPI The patient presents for evaluation of a wasp sting. She reports being stung on the top of her foot by a wasp, resulting in small red welts. She is not experiencing any pain at present. She describes her breathing as coming in waves. She administered an EpiPen approximately 30 minutes ago, which was prescribed to her a month ago following her first allergic reaction to a wasp sting. This initial reaction occurred when she was stung on the top of her head by a paper wasp, leading to facial swelling within 10 minutes. She arrived via EMS. Exam General: Well-appearing in no acute distress speaking in complete sentences. Head: Normocephalic, atraumatic. Eye: Extraocular eye movements intact. No conjunctival injection. No scleral icterus. Ear, nose, mouth, throat: Grossly normal inspection. Normal voice, handling secretions normally. No significant posterior oropharynx swelling. Neck: Trachea midline. Cardiovascular: Well-perfused distal extremities. Rapid regular rate Respiratory: Nonlabored respiration. Clear lungs bilaterally. No wheezes. Gastrointestinal: Nondistended abdomen. Musculoskeletal: No edema. Moving all 4 extremities spontaneously. Skin: Normal for age and race, grossly normal temperature and turgor. No acute rash. On the dorsal aspect of the left proximal foot there is an approximately 1 cm diameter mild erythematous area. No fluctuance. Neurologic: Alert and appropriate, no apparent acute deficits. GCS 15. Psychiatric: Mood and manner are appropriate. Grooming and personal hygiene are appropriate. Related Data Home Medications ?Medication ?Instructions ?Recorded ?Confirmed ibuprofen 800 mg tablet 800 mg PO TID PRN pain #120 tabs 05/27/24 05/05/25 lidocaine 4 % topical patch 1 patch topical DAILY PRN pain #30 05/27/24 05/05/25 ea epinephrine 0.3 mg/0.3 mL 0.3 mg (0.3 mL) IM Q5-15M RI N #2 ea 03/02/25 05/05/25 injection, auto-injector (EpiPen 2-Kian) Adderall XR 30 mg capsule,extended 30 mg PO DAILY #28 caps 04/28/25 05/05/25 release (dextroamphetamine-amphetamine) epinephrine 0.3 mg/0.3 mL 0.3 mg (0.3 mL) IM Q5-15M RI N #2 ea 05/05/25 injection, auto-injector (EpiPen 2-Kian) Previous Rx's ?Medication ?Instructions ?Recorded ibuprofen 800 mg tablet 800 mg PO TID PRN pain #120 tabs 05/27/24 lidocaine 4 % topical patch 1 patch topical DAILY PRN pain #30 05/27/24 ea epinephrine 0.3 mg/0.3 mL 0.3 mg (0.3 mL) IM Q5-15M RI N #2 ea 03/02/25 injection, auto-injector (EpiPen 2-Kian) Adderall XR 30 mg capsule,extended 30 mg PO DAILY #28 caps 04/28/25 release (dextroamphetamine-amphetamine) epinephrine 0.3 mg/0.3 mL 0.3 mg (0.3 mL) IM Q5-15M RI N #2 ea 05/05/25 injection, auto-injector (EpiPen 2-Kian) Allergies Allergy/AdvReac Type Severity Reaction Status Date / Time bee venom protein (honey bee) Allergy Severe Anaphylaxis Verified 05/05/25 19:27 venom-wasp Allergy Severe Anaphylaxis Verified 05/05/25 19:27 Ambien - weird dreams AdvReac Intermediate weird Uncoded 05/05/25 19:27 dreams General Stated Complaint: Allergic RANDEE: 3 Course Vital Signs Vital signs: Vital Signs Temperature 36.9 C 05/05/25 19:21 Pulse 112 H 05/05/25 19:21 Respiratory Rate 20 05/05/25 19:21 Blood Pressure 151/70 H 05/05/25 19:21 Pulse Oximetry 99 05/05/25 19:21 Temperature 36.9 C 05/05/25 19:21 Temperature Source Oral 05/05/25 19:21 Pulse 112 H 05/05/25 19:21 Respiratory Rate 20 05/05/25 19:21 Blood Pressure 151/70 H 05/05/25 19:21 Pulse Oximetry 99 05/05/25 19:21 Oxygen Delivery Method Room Air 05/05/25 19:21 Oxygen Flow Rate 0 05/05/25 19:21 Pain Level 0 05/05/25 19:21 PFSH All Active Problems Reaction to hymenoptera sting (Acute) Social anxiety disorder (Acute) Attention deficit hyperactivity disorder (ADHD) (Chronic) IUD surveillance (Chronic) Mirena IUD inserted 04/14/20 Trigger finger of right thumb (Chronic) Electronic cigarette use (Chronic) Medical History Alcohol abuse COVID-19 virus infection Lumbar back pain with radiculopathy affecting lower extremity Lumbar spondylolysis with spondylolisthesis on MRI 03/2020. No disc herniation Surgical History S/P carpal tunnel release Bilateral Family History Father Essential hypertension Alcohol abuse Hyperlipidemia Mother Alcohol abuse Substance abuse Daughter No problems noted. 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
[2025-05-05 20:34] VITALS: PULSE 98; RESP 18; O2SAT 99
[2025-05-05] MEDS: Dexamethasone 4 MG TAB 6 MG PO (20:35)
== END 2025-05-05 20:38 | disposition home or self-care (01) ==
LOC: ER 20:39
PROVIDERS: Emergency Provider Emergency Medicine; PCP Nurse Practitioner Family
DX: T63.441A Toxic effect of venom of bees, accidental (unintentional), initial encounter (principal)
CPT/HCPCS: 99283 ×2; J8540

== ENCOUNTER 2025-06-02 08:32 | Outpatient (REF) | payer MEDICAID, SELFPAY ==
[2025-06-03 10:54] LABS: Chlamydia Result Negative (Negative); GC Result Negative (Negative)
== END 2025-06-02 08:33 | disposition home or self-care (01) ==
LOC: LBN 08:32
PROVIDERS: PCP Nurse Practitioner Family; Visit Provider Nurse Practitioner Family
DX: A64 Unspecified sexually transmitted disease (principal)
CPT/HCPCS: 87491; 87591